=== PATIENT | male | born 1945 | race Caucasian/White ===

== ENCOUNTER 2024-04-11 00:28 | Inpatient (IN) | payer OTHER, SELFPAY ==
[2024-04-10] VITALS (7 sets, daily range): BP systolic 137–161; BP diastolic 70–80; BMI 24.7
[2024-04-10 15:43] LABS: % Basophils 0.8 % (0-2); % Eosinophils 0.4 % (0-6); % Immature Granulocytes 0.5 % (0-0.5); % Lymphocytes 7.8 % (20.5-51.1); % Monocytes 8.4 % (1.7-9.3); % Neutrophils 82.1 % (42.2-75.2); Absolute Basophils 0.1 10^3/uL (0-0.2); Absolute Immature Granulocytes 0.1 10^3/uL (0-0.05); Absolute Lymphocytes 0.7 10^3/uL (1.2-3.4); Absolute Monocytes 0.8 10^3/uL (0.1-0.6); Absolute Neutrophils 7.6 10^3/uL (1.4-6.5); Hemoglobin 13.6 g/dL (13.0-18.0); Mean Corp Hgb Conc. 35.8 g/dL (33.0-37.0); Mean Corpuscular Hgb 34.8 pg (27.0-31.0); Mean Corpuscular Volume 97.2 fL (80.0-94.0); Nucleated Red Blood Cells % 0 % (-); Platelet Count 101 10^3/uL (130-400); Red Blood Cell Count 3.91 10^6/uL (4.70-6.10); Red Cell Dist. Width 12.4 % (11.5-14.5); White Blood Cell Count 9.3 10^3/uL (4.8-10.8)
[2024-04-10 15:56] LABS: Lactic Acid 1.5 mmol/L (0.7-2.0); Lactic Acid 1.6 mmol/L (0.7-2.0)
[2024-04-10 16:09] LABS: ALT (SGPT) 18 U/L (0-50); AST (SGOT) 26 U/L (17-59); Albumin 4.1 g/dl (3.5-5.0); Alkaline Phosphatase 107 U/L (38-126); Blood Urea Nitrogen 15 mg/dl (9-20); Calcium 8.4 mg/dl (8.4-10.2); Carbon Dioxide 25 mmol/L (22-30); Chloride 94 mmol/L (98-107); Glucose 84 mg/dl (70-99); Potassium 4.3 mmol/L (3.5-5.1); Sodium 129 mmol/L (135-145); Total Bilirubin 1.3 mg/dl (0.2-1.3); Total Protein 6.5 g/dl (6.3-8.2); eGFR > 60.00
[2024-04-10] MEDS: TYLENOL 1000 MG PO (22:40)
[2024-04-10] MEDS: NSS 1000 IV (22:42)
--- NOTE | 2024-04-10 22:43 | ED.GENMED ---
History of Present Illness
General
Chief Complaint: Skin Problem
Source: patient, family (Son who was at bedside) and previous hospital records (1 previous ED visit September 2022 for complaints of UTI. ED visit and labs reviewed. Mild hyponatremia noted.)
Exam Limitations: none
Time Seen by Provider: 04/10/24 22:04
Nursing documentation reviewed up to this point in time: agreed with
History of Present Illness
History of Present Illness:
This is a 78-year-old gentleman who resides at home with family. He has history of hypertension, hyperlipidemia, hypothyroidism, BPH. He presents with progressive swelling, redness and pain left lower leg that initially began almost 2 weeks ago
when he dropped a box and struck his left anterior charles causing an abrasion then developed a blister which opened then the area became progressively more red and swollen. He then developed an ecchymotic intact blister left posterior calf. He
reports onset of a fever with Tmax of 103 �F 2 to 3 days ago. Has been taking Tylenol alternating with ibuprofen. Last dose of Tylenol was this afternoon prior to arrival. Last dose of ibuprofen was earlier this morning.
No history of similar episodes of skin infections. He denies back pain nor abdominal pain, no dysuria and urgency and or hematuria. He does note mild brief intermittent cough but denies shortness of breath, no chest pain, no neck pain or headache.
He admits to global progressive pain to his left leg with increased pain with ambulation. He has not had a fall.
No history of diabetes nor immunocompromise.
He has not been on antibiotics.
He has remote history of vein stripping bilateral lower legs but no history of DVT nor thromboembolism.
Past History
Past History
ED Past Medical History: Cancer (Squamous cell carcinoma of forehead, right lateral neck. Benign skin cancer removal left medial lower leg), HTN, Hypercholesterolemia, Hypothyroidism and Other (BPH)
ED Past Surgical History: Appendectomy and Tonsilectomy
Social History
Tobacco: Non-smoker
Alcohol: Occasional
Drug: None
Personal:
Living: with family
Employment: Retired
Family History
Family History: Other (Noncontributory)
Phy Exam
Physical Exam
Physical Exam:
GENERAL: 78-year-old gentleman appears his stated age, awake and alert, very minimally briefly confused from time to time but easily reorients himself and for the most part oriented x 3. Noted to be febrile 101.5 �F. Son is at bedside and
assisting with some of the history.
EYE: pupils equal and reactive. anicteric
NECK: Supple, nontender, no meningismus, no significant adenopathy.
ENT: posterior pharynx is clear, oral mucosa is mildly dry. TM clear b/l, nares patent.
CARDIAC: Regular rate and rhythm. no murmur.
LUNGS: Clear breath sounds bilaterally, no acute respiratory distress, no wheezes/rales/rhonchi
ABDOMEN: Soft, nondistended, without focal tenderness, no r/g, no cvat. normoactive BS.
NEUROLOGICAL: Alert and oriented x3, no focal neuro deficits.
SKIN: Warm and dry, fair turgor. The left lower leg has a dry superficial ulcer anterior mid aspect of the charles there is dark purple ecchymotic bullous left posterior lower leg that is exquisitely tender to palpation. There is markedly global
quite violaceous erythema of the entire left lower leg that extends with moderate erythema to the left anteromedial thigh up to the groin. There is 1 palpable mildly tender enlarged left inguinal node. The foot is without erythema nor edema.
Peripheral pulses are full and equal bilaterally. Gross sensation is intact.
MUSCULOSKELETAL: There is full range of motion bilateral lower extremities with increased pain with flexion of the left knee related to global soft tissue edema of left lower leg. Right lower extremity without edema nor erythema. Peripheral pulses
are full and equal.
PSYCH: Normal and appropriate interaction.
Course
Orders/Labs/Results
Orders:
Orders
04/10/24 15:35
Complete Blood Count/With Diff Urgent
Lactic Acid Q4H
Comment: ON ICE, CANCEL 2ND ORDER IF FIRST LACTIC ACID LEVEL <2
Lactic Acid Q4H
Comment: ON ICE, CANCEL 2ND ORDER IF FIRST LACTIC ACID LEVEL <2
04/10/24 15:36
Comprehensive Metabolic Panel Urgent
04/10/24 22:23
0.9% Sodium Chloride 1000 ml [Nss] 1,000 ml IV BOLUS
Acetaminophen [Tylenol] 1,000 mg PO NOW STA
Piperacillin/Tazo 4.5 Gram [Zosyn] 4.5 gram in 100 ml IV NOW
04/10/24 22:27
US Periph Venous LOWER Ext LT Urgent
Comment:
Reason For Exam: swelling redness LLE
04/10/24 22:29
COVID-19 Antigen Urgent
Source: Nasal Swab
Lactic Acid Urgent
Blood Culture Q30M
KENDY Source: Blood/Venous
Specimen Description:
Influenza A+B Rapid Molecular Urgent
KENDY Source: Nasal Swab
Specimen Description:
04/10/24 22:48
Blood Culture Q30M
KENDY Source: Blood/Venous
Specimen Description:
04/10/24 23:00
Flush (0.9% Sodium Chloride) [Flush (Nss)] See Dose Instructions IV PER PROTOCOL
04/11/24 00:05
Admit/Transfer Patient As Directed
Co-Sign Provider:
Level of Care: Inpatient admission
Assign to:: Medical/Surgical
Physician / Group: Hospitalist
Diagnosis: cellulitis
Reason for Hospitalization: severe cellulitis
Expected length of stay greater than two midnights?: Yes
ELOS- Estimated Length of Stay in days: 2
I certify the patient meets the requirements for IP care: Yes
PRN Pain Medication Management As Directed
May give lesser potent ordered pain med per pt: Yes
preference::
Protocol:: Medication orders for pain may be administered in a
manner that supports deferring to patient preference
when the pt is:
- Requesting an ordered lesser potent pain medication.
Least to most potent pain medications are defined
as: acetaminophen < NSAID < tramadol < opioids
(morphine, oxycodone, hydromorphone).
- Requesting a lesser dose of the same medication IF
ORDERED.
- Requesting a less intrusive route of administration
if both routes are prescribed by the provider (PO <
IV).
04/11/24 00:06
Code Status As Directed
Resuscitation Status: Full Code
04/11/24 00:15
Vancomycin [Vancocin] 2,000 mg 0.9% Sodium Chloride 500 ml [Nss] 500 ml IV NOW
04/11/24 00:41
0.9% Sodium Chloride 1000 ml [Nss] 1,000 ml IV 100 mls/hr
Acetaminophen [Tylenol] 650 mg PO Q4HPRN PRN
Bisacodyl [Dulcolax] 10 mg RECTAL [id number] PRN
Docusate W/Senna [Senokot-S] 1 tablet PO BIDPRN PRN
HYDROmorphone [Dilaudid] 0.5 mg IV Q4HPRN PRN
Ondansetron Injectable [Zofran] 4 mg IV Q6HPRN PRN
Polyethylene Glycol Powder [Miralax] 17 grams PO DAILYPRN PRN
Tramadol HCl [Ultram] 50 mg PO Q6HPRN PRN
04/11/24 00:41
Consult Notification Routine
Specialty to Notify: Infectious Disease
INFECTIOUS DISEASE CONSULT Routine
Consulting Provider: Marlene Boss
Was physician already notified: No
Reason for consult: extensive cellulitis of LLE
Activity As Directed
Activity Level: With Assistance
Vital Signs As Directed
Frequency: Per unit guidelines
DX Deep Vein Thrombosis Video Routine
04/11/24 02:00
VANCOMYCIN Pharmacy to Dose [VANCOCIN Pharmacy to Dose] 1 each Pharmacy To Prepare [Call Pharmacy To Prepare] 0 ml IV PER PROTOCOL
04/11/24 05:14
Basic Metabolic Panel IN AM
Complete Blood Count/No Diff IN AM
04/11/24 Breakfast
Regular
At Your Request: Full Participation
Does patient need a safe tray?: No
Levothyroxine [Synthroid] 100 mcg PO DAILY @ 0600
Piperacillin/Tazo 3.375 Gram [Zosyn] 3.375 gram in 50 ml IV Q6H
04/11/24 08:00
Atorvastatin [Lipitor] 10 mg PO DAILY
Finasteride [Proscar] 5 mg PO DAILY
Lisinopril [Zestril] 10 mg PO DAILY
Tamsulosin [Flomax] 0.4 mg PO BID
mometasone 2 spray NASAL DAILY
04/11/24 18:00
Enoxaparin Sodium [Lovenox] 40 mg SC QPM
Abnormal Lab Results
04/10/24 04/10/24
15:35 15:36
RBC 3.91 L 10^6/uL
(4.70-6.10)
Hct 38.0 L %
(39.0-52.0)
MCV 97.2 H fL
(80.0-94.0)
MCH 34.8 H pg
(27.0-31.0)
Plt Count 101 L 10^3/uL
(130-400)
Abs Immat Gran (auto) 0.1 H 10^3/uL
(0-0.05)
Absolute Neuts (auto) 7.6 H 10^3/uL
(1.4-6.5)
Absolute Lymphs (auto) 0.7 L 10^3/uL
(1.2-3.4)
Absolute Monos (auto) 0.8 H 10^3/uL
(0.1-0.6)
Neutrophils % 82.1 H %
(42.2-75.2)
Lymphocytes % 7.8 L %
(20.5-51.1)
Sodium 129 L mmol/L
(135-145)
Chloride 94 L mmol/L
(98-107)
04/10/24 15:35
04/10/24 15:36
Vital Signs
Initial and Last Documented VS:
Initial Vital Signs
Temp Pulse Resp BP Pulse Ox
98 F 73 16 151/80 97
04/10/24 15:20 04/10/24 15:20 04/10/24 15:20 04/10/24 15:20 04/10/24 15:20
Last Documented Vital Signs
Temp Pulse Resp BP Pulse Ox
99.2 F 76 22 162/79 94
04/11/24 06:11 04/11/24 07:04 04/11/24 06:45 04/11/24 07:04 04/11/24 07:04
MDM/Problems Addressed
Differential Diagnosis Includes:
Patient presents with global cellulitis left lower extremity that appears to have begun with superficial abrasion to left anterior charles. Due to global and violaceous nature of the erythema to the left lower leg as well as accompanying exquisitely
tender ecchymotic bullous left posterior calf, accompanied with high fever, concern for potential early necrotizing infection/deeper infection.
Labs are overall reassuring with normal white blood cell count.
Mild hyponatremia but similar hyponatremia noted September 2022.
He is noted to have very mild thrombocytopenia of 101 which is new compared to previous labs September 2022.
Lactic acid is normal at 1.6.
With current fever, prolonged ED wait time will recheck lactic acid, check blood cultures, will give Tylenol for fever, initiate IV fluids and initiate broad-spectrum IV antibiotic.
Due to global edema left lower extremity concern for potential DVT, concern for subcutaneous infection, will check ultrasound.
Due to potential for severe progressive infection, sepsis patient will require IV antibiotics and hospitalization.
Chronic conditions affecting care: HTN
*Radiology
Radiology exam reviewed: other (Venous Doppler left lower extremity negative for DVT. No evidence of subcutaneous gas.)
*Pulse Oximetry
Patient hypoxic: no
*[employer] Tester Interpretation
Rate: normal
Interpretation: normal
Rhythm: sinus
*Critical Care Note
Total Time (30-74mins, 75-104mins- exclusive of procedures): Not Applicable
ED Attending Note
-
Portions of this chart may have been created with voice recognition software.� Occasional wrong word or��sound alike� substitutions may have occurred due to the inherent limitations of voice recognition software.
Discharge Plan
Departure
Patient Disposition: Admit
Date of Disposition: 04/10/24
Time of Disposition: 22:43
Admit to: Med/Surg
Admit to doctor: Denia
Presentation/result/management discussed w/ accepting MD/DO: Hospitalist
Condition: Fair
Discharge Problem:
Cellulitis of left lower extremity without foot, SIRS (systemic inflammatory response syndrome)
Interventions
Interventions:
*Risk Screen - Suicide Last Done: 04/10/24 15:20
*General Assessment Last Done: 04/10/24 15:20
*Neglect/Abuse Screening Last Done: 04/10/24 15:20
ED-Skin Assessment Last Done: 04/10/24 22:19
[2024-04-10 22:49] LABS: Lactic Acid 1.4 mmol/L (0.7-2.0)
[2024-04-10 22:54] LABS: COVID-19 Antigen Negative (Negative)
[2024-04-10] MEDS: ZOSYN 100 IV (23:47)
--- NOTE | 2024-04-10 23:55 | HPS.HSE ---
Family Physician
-
Family Physician: Freeman Amezcua
Chief Complaint
-
Left leg redness and swelling
History of Present Illness
This is a 78-year-old past medical history of hypothyroidism, BPH, hypertension and recent squamous cell cancer status post excision years ago presents to the emergency department with approximately 3 days of increasing lower extremity swelling and
erythema.
Patient reports that he had been in usual state of health up until 3 days ago. That is when he first noticed swelling that started around his ankles and then started spreading to his knees. The swelling has spread in streak-like fashion
to the groin. He denies prior open wounds or injuries. He had a fever of up to 103 at home. He has been taking Tylenol intermittently. He reports decreased p.o. intake and weakness. He denies any nausea vomiting or diarrhea. He denies any
chest pain pleuritic or otherwise. He denies any prior history of DVT.
The emergency department he was febrile to one 1.5, blood pressure was 157/70 pulse of 79. Was not saturation was 90% on room air. CBC was actually unremarkable. Sodium was 129 to rest of the electrolytes BUN/creatinine were normal. Lactic acid
levels have been normal. Left lower extremity Doppler ultrasound was negative for DVT. There was no significant subcutaneous gas.
Medical History
Past Medical History
Past Medical History: Reports Cancer (Squamous cell cancer status post surgery), HTN, Hypercholesterolemia and Hypothyroidism
Additional Past Medical History:
BPH
Past Surgical History: Reports Appendectomy and Tonsilectomy
Additional Past Surgical History:
Left frontal parietal squamous cell excision
Social History
Tobacco: Non-smoker
Alcohol: Daily
Drug: None
Personal: Single
Living: With Family
Employment: Retired
Family History
Family History: Not pertinent
Allergies / Home Medications
Allergies reflects when Allergies were last updated in [facility].
Home Medications with original date entered in [facility]
Allergy/Medication List:
Allergies
Allergy/AdvReac Type Severity Reaction Status Date / Time
No Known Allergies Allergy Verified 04/10/24 22:16
Home Medications
atorvastatin 10 mg tablet 10 mg PO DAILY 04/10/24
finasteride 5 mg tablet 5 mg PO DAILY 04/10/24
levothyroxine 100 mcg tablet 100 mcg PO DAILY 04/10/24
lisinopril 10 mg tablet 10 mg PO DAILY 04/10/24
mometasone 50 mcg/actuation nasal spray 2 spray intranasal DAILY 04/10/24
tamsulosin 0.4 mg capsule (Flomax) 0.4 mg PO BID 04/10/24
Review of Systems
-
Constitutional: Reports Fever
EENT: Reports No Symptoms
Respiratory: Reports No Symptoms
Cardiac: Reports No Symptoms
Abdomen/GI: Reports No Symptoms
: Reports No Symptoms
Musculoskeletal: Reports Edema
Skin: Reports Rash
Neurological: Reports No Symptoms
Endocrine: Reports No Symptoms
Hematologic/Lymphatic: Reports No Symptoms
Psych: Reports No Symptoms
Physical Exam
Vital Signs
Vital Signs
Temp Pulse Resp BP Pulse Ox
101.5 F H 79 23 137/71 96
04/10/24 22:18 04/10/24 23:30 04/10/24 23:30 04/10/24 23:36 04/10/24 23:36
Physical Exam
General: Well Developed, Well Nourished, Comfortable and Conversant
HEENT: NormoCephalic, Anicteric and Moist mucous membranes
Respiratory: Clear
Cardiac: S1/S2 and Regular Rhythm
Breast: Deferred by me
GI: Soft, Non Tender, Non Distended and Normal Bowel Sounds
Rectal: Deferred by Provider
Genito-urinary: Deferred by me
Musculoskeletal: No Clubbing, No Cyanosis and Edema, Left Lower Extremity (1+)
Skin: Rash (extensive erythema from the ankle to the knee, extension of the erythema above the knee along the medial thigh to the inguinal region. Tender to palpation)
Neuro: AO x 3 and Nonfocal/grossly intact
Hematologic/Lymphatic: No Lymphadenopathy
Psych: Calm
Laboratory Results
-
04/10/24 15:35
04/10/24 15:36
Laboratory Results
Lactic Acid 1.4 mmol/L (0.7-2.0) 04/10/24 22:29
Total Bilirubin 1.3 mg/dl (0.2-1.3) 04/10/24 15:36
AST 26 U/L (17-59) 04/10/24 15:36
ALT 18 U/L (0-50) 04/10/24 15:36
Alkaline Phosphatase 107 U/L (38-126) 04/10/24 15:36
Data Reviewed
-
Ultrasound: Report Reviewed by me
Lab Data: Labs Reviewed by me
Old Records: Reviewed
Impression/Plan
-
IMPRESSION:
78-year-old otherwise healthy with hypertension and hyperlipidemia who presents emergency department with 2 days of left lower extremity swelling and redness consistent with cellulitis with lymphangitic spread. No recent antibiotics, no recent
hospitalization. He is not on any immunosuppressants. Febrile here, hemodynamically stable with normal lactic acid levels.
PLAN:
Cellulitis -severe non-purulent left lower extremity cellulitis, no obvious abscess, no gas to suggest fasciitis. Lactic acid is within the normal range. No risk factors for resistant bacteria but rapid lymphangitic spread with systemic findings.
- admit to med/surg
- blood cultures sent
- will continue iv zosyn for now, add vanco for possible community acquired mrsa
- mrsa swab
- pain control
- ID consult
Hyponatremia - Recent decreased po intake suspect as etiology
- give fluids and abx first and repeat sodium in am
HTN / HLD
- continue lisinopril
- continue statin
BPH
- continue tamsulosin
Hypothyroid
- continue levothyroxine
DVT PPX - lovenox sq
Code status - full code
[2024-04-11] VITALS (29 sets, daily range): BP systolic 130–162; BP diastolic 66–83
[2024-04-11] MEDS: VANCOCIN 540 MG IV (00:20)
[2024-04-11] MEDS: NSS 1000 IV ×3 (01:14→23:27)
[2024-04-11 05:44] LABS: Hematocrit 33.1 % (39.0-52.0); Hemoglobin 11.8 g/dL (13.0-18.0); Mean Corp Hgb Conc. 35.6 g/dL (33.0-37.0); Mean Corpuscular Volume 98.2 fL (80.0-94.0); Mean Platelet Volume 9.3 fL (7.4-10.4); Platelet Count 90 10^3/uL (130-400); Red Blood Cell Count 3.37 10^6/uL (4.70-6.10); Red Cell Dist. Width 12.3 % (11.5-14.5); White Blood Cell Count 9.4 10^3/uL (4.8-10.8)
[2024-04-11 05:59] LABS: Blood Urea Nitrogen 12 mg/dl (9-20); Calcium 7.7 mg/dl (8.4-10.2); Carbon Dioxide 25 mmol/L (22-30); Chloride 95 mmol/L (98-107); Estimated Creatinine Clearance 96 ml/min; Glucose 92 mg/dl (70-99); Potassium 3.9 mmol/L (3.5-5.1); Sodium 129 mmol/L (135-145); eGFR > 60.00
[2024-04-11] MEDS: ZOSYN 50 IV ×2 (06:08→13:00)
[2024-04-11] MEDS: SYNTHROID 100 MCG PO (06:12)
--- NOTE | 2024-04-11 07:48 | PHA.VAN.IN ---
Assessment
- Assessment
Renal Function: Appears similar to baseline
Maximum Temperature: 101.5 - 04/10 - 22:18
Concomitant Antimicrobials: piperacillin/tazobactam
AUC Dosing Plan
- Empiric Dosing
Initial / Loading Dose: 2000 mg 04/11/24 @00:20
Maintenance Regimen: 1250 mg q12h - to start this AM
Estimated AUC (mcg*h/mL): 564
Estimated Peak (mcg*h/mL): 35
Estimated Trough (mcg/ml): 14.5
Estimated Half Life (H): 8.2
- Monitoring
No levels ordered at this time: consider levels after Tues christine dose ( 4th Maint)
Pharmacokinetics Vancomycin I
- -
Patient Age: 78
Patient Sex: Male
Vancomycin Day #: 1
Indication: Skin And Soft Tissue
Requesting Provider: Denia
Height / Weight:
Height 5 ft 11 in
Actual Weight 80.2 kg
- Vital Signs / Lab Results
Temp Pulse Resp BP Pulse Ox
99.2 F 76 22 162/79 94
04/11/24 06:11 04/11/24 07:04 04/11/24 06:45 04/11/24 07:04 04/11/24 07:04
Lab Results - Hematology
04/10/24 04/11/24
15:35 05:14
WBC 9.3 9.4
Lab Results - Chemistry
04/10/24 04/11/24
15:36 05:14
BUN 15 12
Creatinine 0.8 0.7
Estimated Creat Clear 96
Albumin 4.1
04/10/24 04/10/24 04/10/24
15:35 15:35 22:29
Lactic Acid 1.5 1.6 1.4
Microbiology Results
04/10/24 22:29 Influenza Types A & B (BETSY) - Final
Nasal Swab Negative for Influenza A & B, NAAT
Negative results must be combined with clinical observations
and patient history.
Nucleic Acid Amplification test (NAAT)performed on the
[employer] platform.
[2024-04-11] MEDS: ZESTRIL 10 MG PO (09:36)
[2024-04-11] MEDS: PROSCAR 5 MG PO (09:36)
[2024-04-11] MEDS: FLOMAX 0.4 MG PO ×2 (09:36→19:34)
[2024-04-11] MEDS: LIPITOR 10 MG PO (09:36)
[2024-04-11] MEDS: VANCOCIN 275 MG IV (09:36)
--- NOTE | 2024-04-11 13:48 | W.PN.HOSP.TC ---
Today's Communication/Plan
-
Continue with broad-spectrum IV antibiotics.
ID eval pending
Follow culture data.
Assessment / Plan
Assessment / Plan
IMPRESSION:
78-year-old otherwise healthy with hypertension and hyperlipidemia who presents emergency department with 2 days of left lower extremity swelling and redness consistent with cellulitis with lymphangitic spread. No recent antibiotics, no recent
hospitalization. He is not on any immunosuppressants. Febrile here, hemodynamically stable with normal lactic acid levels.
PLAN:
Cellulitis -severe non-purulent left lower extremity cellulitis, no obvious abscess, no gas to suggest fasciitis. Lactic acid is within the normal range. No risk factors for resistant bacteria but rapid lymphangitic spread with systemic findings.
- cw emp abx
- blood cultures sent
- mrsa swab
- pain control
- ID consult
Hyponatremia - Recent decreased po intake ? etiology
- check urine lytes
- Follow for now
HTN / HLD
- continue lisinopril
- continue statin
BPH
- continue tamsulosin
Hypothyroid
- continue levothyroxine
DVT PPX - lovenox sq
Code status - full code
DW son at bedside regarding clinical diagnosis, treatment plan.
Anticipated Discharge: > 48 hours
Subjective/Interval History
-
Date of Service: April 11, 2024
Patient still with some discomfort in the left leg. Has chills. Had a fever last night.
No nausea vomiting. No diarrhea.
Chronic low back pain which he feels more so today. No radiculopathy.
Objective Data
-
Labs:
Laboratory Results
04/11/24
05:14
WBC 9.4
Hgb 11.8 L
Hct 33.1 L
Plt Count 90 L
Sodium 129 L
Potassium 3.9
Chloride 95 L
Carbon Dioxide 25
BUN 12
Creatinine 0.7
Glucose 92
Calcium 7.7 L
Vital Signs:
Vital Signs
Temp Pulse Resp BP Pulse Ox
99.6 F 70 22 145/72 98
04/11/24 09:34 04/11/24 09:34 04/11/24 09:34 04/11/24 09:34 04/11/24 09:34
Review of Systems
-
EENT: Denies Sore Throat
Respiratory: Denies Cough or Trouble Breathing
Cardiac: Denies Chest Pain
Neuro: Denies Dizzy
Physical Exam
-
General: Comfortable
Respiratory: Non Labored Respirations; Negative Accessory Resp Muscle Use
Cardiac: Regular Rhythm and S1/S2; Negative Tachycardic
GI: Soft
Musculoskeletal: Other (Significant cellulitis involving the whole left leg with lymphatic streaking of the left inner distal thigh. Open blister noted in anterior upper leg)
Neuro: AO x 3
Psych: Calm; Negative Confused
Data Reviewed
-
Labs: Labs Reviewed by me
[2024-04-11 15:06] LABS: Osmolality Urine 476 mOsm/kg (300-900)
[2024-04-11 15:22] LABS: Urine Sodium 77 mmol/L (30-90)
--- NOTE | 2024-04-11 15:24 | CON.ID ---
Consultation
-
Date/Time Consultation Requested: 04/11/2024 0041
Date/Time Consultation Performed: 04/11/2024 1454
Requesting Provider: Dr. Loza
Performing Provider: Dr. Tripathi
Reason for Consultation: Left lower extremity cellulitis
Chief Complaint / Past History
History of Present Illness
Troy Rao is a 78-year-old man being evaluated regarding left lower extremity cellulitis. History is obtained from chart review, along with patient interview. The patient has a significant past medical history only for hypertension and
dyslipidemia. He reports that he was in his usual state of health until approximately 2 to 3 weeks ago when he reports that he was moving boxes into the cellar. He recalls that one of the boxes slipped and struck his left anterior tibial area. He
developed a blood blister the next day and the area, but the following day he again was moving boxes and another box slipped and broke that blood blister open. Approximate 3 days later he additionally developed a blistering area on the posterior
calf. He recalls the day after [place] he developed the acute onset of shaking and rigors, with a temperature to 103 degrees. Since that time he has had progressive lower extremity discomfort, and intermittent fevers. He denies any groin pain.
He denies any erythema spreading above his knee. He recalls no prior symptomatology.
Past History
Additional Past Medical History:
HTN
Dyslipidemia
Hypothyroidism
BPH
Additional Past Surgical History:
Appendectomy
Tonsillectomy
Allergy History:
No Known Allergies Allergy (Verified 04/10/24 22:16)
Medications Reviewed: Yes
Current Antibiotics:
Vancomycin
Zosyn
Social History
Tobacco: Non-Smoker
Alcohol: Occasional
Drug: None
Personal:
Living: With Family
Employment: Retired
Family History
Family History: Not Pertinent
Review of Systems
Vital Signs
Temp Pulse Resp BP Pulse Ox
99.6 F 70 22 145/72 98
04/11/24 09:34 04/11/24 09:34 04/11/24 09:34 04/11/24 09:34 04/11/24 09:34
Physical Exam
Physical Exam
Constitutional: No Acute Distress, Comfortable and Non-toxic
Eyes: Pupils Equal, Pupils Round, No Conjunctival Hemorrhage and Sclera Anicteric
Oral: No Thrush and No Ulcers
Cardiovascular: Regular Rate and S1/S2; Negative S3/S4
Pulmonary: Clear; Negative Wheezes, Rales or Rhonchi
Gastrointestinal: Soft, Non Tender and Non Distended
Extremities: Edema (3+ LLE edema), Erythema (left leg; ankle to knee.) and Calf Swelling; Negative Splinter Hemorrhage or Venous Insufficiency
Musculoskeletal: Negative Joint Swelling or Joint Effusion
Skin: Warm and Dry; Negative Rash or Jaundice
Neurological: Awake and Alert
Lab / Diagnostic Study Results
04/11/24 05:14
04/11/24 05:14
Abs Immat Gran (auto) 0.1 10^3/uL (0-0.05) H 04/10/24 15:35
Absolute Neuts (auto) 7.6 10^3/uL (1.4-6.5) H 04/10/24 15:35
Absolute Lymphs (auto) 0.7 10^3/uL (1.2-3.4) L 04/10/24 15:35
Absolute Monos (auto) 0.8 10^3/uL (0.1-0.6) H 04/10/24 15:35
Absolute Basos (auto) 0.1 10^3/uL (0-0.2) 04/10/24 15:35
Immature Gran % 0.5 % (0-0.5) 04/10/24 15:35
Neutrophils % 82.1 % (42.2-75.2) H 04/10/24 15:35
Lymphocytes % 7.8 % (20.5-51.1) L 04/10/24 15:35
Monocytes % 8.4 % (1.7-9.3) 04/10/24 15:35
Eosinophils % 0.4 % (0-6) 04/10/24 15:35
Basophils % 0.8 % (0-2) 04/10/24 15:35
Lactic Acid 1.4 mmol/L (0.7-2.0) 04/10/24 22:29
Microbiology Results
Micro:
04/10/24 22:48 Blood Culture - Pending
Blood/Venous
04/10/24 22:29 Influenza Types A & B (BETSY) - Final
Nasal Swab Negative for Influenza A & B, NAAT
Negative results must be combined with clinical observations
and patient history.
Nucleic Acid Amplification test (NAAT)performed on the
[employer] platform.
04/10/24 22:29 Blood Culture - Pending
Blood/Venous
Imaging:
04/10/2024 Duplex ultrasound left lower extremity: No evidence for left lower extremity DVT.
Assessment / Plan
Acute left lower extremity cellulitis
Normal white count with left shift
Hyponatremia
HTN
Dyslipidemia
Hypothyroidism
BPH
Recommendations:
Transition antibiotic therapy to cefazolin 2 g IV every 8 hours.
Lower extremity elevation.
Quan wrap to the lower extremity (foot to knee)
Monitor white count temperature curve.
Monitor pending cultures.
Further recommendations as additional data is returned.
[2024-04-11] MEDS: LOVENOX 40 MG SC (16:49)
[2024-04-11] MEDS: ANCEF 10 IV ×2 (16:49→23:26)
[2024-04-11] MEDS: ULTRAM 50 MG PO (17:07)
[2024-04-11] MEDS: TYLENOL 650 MG PO (19:34)
[2024-04-12] VITALS: BP 141/72
[2024-04-12 01:00] VITALS: BP 124/70
[2024-04-12] MEDS: SYNTHROID 100 MCG PO (05:44)
--- NOTE | 2024-04-12 06:31 | PTCARENOTE ---
report tubed to 4 west
[2024-04-12 06:34] LABS: Hematocrit 28.5 % (39.0-52.0); Hemoglobin 10.1 g/dL (13.0-18.0); Mean Corp Hgb Conc. 35.4 g/dL (33.0-37.0); Mean Corpuscular Hgb 35.2 pg (27.0-31.0); Mean Corpuscular Volume 99.3 fL (80.0-94.0); Mean Platelet Volume 9.4 fL (7.4-10.4); Platelet Count 91 10^3/uL (130-400); Red Blood Cell Count 2.87 10^6/uL (4.70-6.10); Red Cell Dist. Width 12.4 % (11.5-14.5); White Blood Cell Count 7.5 10^3/uL (4.8-10.8)
[2024-04-12 06:41] LABS: Blood Urea Nitrogen 10 mg/dl (9-20); Calcium 6.8 mg/dl (8.4-10.2); Carbon Dioxide 21 mmol/L (22-30); Chloride 104 mmol/L (98-107); Estimated Creatinine Clearance 96 ml/min; Glucose 85 mg/dl (70-99); Potassium 3.5 mmol/L (3.5-5.1); Sodium 132 mmol/L (135-145); eGFR > 60.00
[2024-04-12 06:58] VITALS: BP 162/79; BMI 25.7
[2024-04-12 07:25] VITALS: BP 148/77
[2024-04-12] MEDS: ZESTRIL 10 MG PO (08:44)
[2024-04-12] MEDS: FLOMAX 0.4 MG PO ×2 (08:45→20:01)
[2024-04-12] MEDS: PROSCAR 5 MG PO (08:45)
[2024-04-12] MEDS: LIPITOR 10 MG PO (08:45)
[2024-04-12] MEDS: ANCEF 10 IV ×3 (08:51→23:04)
--- NOTE | 2024-04-12 09:17 | PN.CDI ---
CDI
- -
CDI:
Physician Documentation Request
Admit Date: 04/11/24 00:28
Dear Doctor Berhane,
Patient admitted with cellulitis.
ER Physician Documentation: 'He reports onset of a fever with Tmax of 103 �F 2 to 3 days ago. Has been taking Tylenol alternating with ibuprofen. Last dose of Tylenol was this afternoon prior to arrival. Last dose of ibuprofen was earlier this
morning.'
Selected Entries
04/10/24
22:18
Temp 101.5 F H
04/10/24
22:45 04/10/24
23:00 04/10/24
23:30
Resp Rate 28 27 23
Please clarify which of the following most accurately describes the status of the patient's infection:
Sepsis, POA
- Systemic manifestations of infection, with 2 or more SIRS criteria which include:
- Fever >100.4 degrees F or hypothermia < 96.8 degrees F
- Leukocytosis - WBC > 12,000 or leukopenia - WBC < 4,000 or > 10% bands
- Tachycardia > 90 beats per minute
- Tachypnea - RR > 20 breaths per minute or PaCO2 , 32mmHg
Source: Merck Manual 2013
- Indicate the known or suspected organism
- Indicate the known or suspected underlying infection, such as cellulitis
Localized Infection Only, Without Systemic Illness
- indicate the site/source, such as UTI, pneumonia etc.
Other
Use of terms such as suspected, likely, concern for, or probable (associated with a specific diagnosis that is being evaluated, monitored, or treated as if it exists) are acceptable and can be coded in the inpatient setting, when documented at the
time of discharge.
Thank you,
Francia Jimenez RN, BSN
CDI Specialist
Available via [place] text
Please use your independent medical judgment in providing your response.
[2024-04-12] MEDS: NSS IV (09:33)
--- NOTE | 2024-04-12 10:49 | CM ---
CM reviewed chart, patient seen bedside, initial assessment completed. Patient resides in a multiple story home with his daughter and granddaughter, five steps to enter. Patient denies DME in the home, denies VN or SNF history. Patient PCP [facility]
Jorge Amezcua, [facility] [place], believes he has prescription coverage. Patient on IV antibiotics. CM will continue to follow for all discharge planning needs.
Plan; home no needs likely
--- NOTE | 2024-04-12 14:30 | W.PN.HOSP.TC ---
Today's Communication/Plan
-
Continue current antibiotics
Fluid restrict and follow sodium
Assessment / Plan
Assessment / Plan
IMPRESSION:
78-year-old otherwise healthy with hypertension and hyperlipidemia who presents emergency department with 2 days of left lower extremity swelling and redness consistent with cellulitis with lymphangitic spread. No recent antibiotics, no recent
hospitalization. He is not on any immunosuppressants. Febrile here, hemodynamically stable with normal lactic acid levels.
PLAN:
Cellulitis -severe non-purulent left lower extremity cellulitis, no obvious abscess, no gas to suggest fasciitis. Lactic acid is within the normal range. No risk factors for resistant bacteria but rapid lymphangitic spread with systemic findings.
- cw emp abx
- blood cultures neg so far
- pain control , drew wrap leg
- appt ID consult
Hyponatremia - Recent decreased po intake ? etiology
- urine lytes suggest excess ADH
- FR for now
HTN / HLD
- continue lisinopril
- continue statin
BPH
- continue tamsulosin
Hypothyroid
- continue levothyroxine
DVT PPX - lovenox sq
Code status - full code
Anticipated Discharge: 24 - 48 hours
Subjective/Interval History
-
Date of Service: April 12, 2024
Feeling improved.
No fever or chills today. Improved fatigue.
No nausea, vomiting or diarrhea.
Left leg now wrapped in compression dressing. Feels little tight in the ankle but not much of pain.
Objective Data
-
Labs:
Laboratory Results
04/12/24
05:49
WBC 7.5
Hgb 10.1 L
Hct 28.5 L
Plt Count 91 L
Sodium 132 L
Potassium 3.5
Chloride 104
Carbon Dioxide 21 L
BUN 10
Creatinine 0.7
Glucose 85
Calcium 6.8 L*
Vital Signs:
Vital Signs
Temp Pulse Resp BP Pulse Ox
98.9 F 70 16 148/77 99
04/12/24 07:25 04/12/24 07:25 04/12/24 07:25 04/12/24 07:25 04/12/24 07:25
I&O
04/11/24 04/12/24 04/13/24
06:59 06:59 06:59
Output Total 200 / 200
Balance -200 / -200
Review of Systems
-
Respiratory: Denies Trouble Breathing
Cardiac: Denies Chest Pain or Palpitations
Abdomen/GI: Denies Abdominal Pain
Neuro: Denies Dizzy
Physical Exam
-
General: No Apparent Distress
HEENT: Moist Mucous Membranes
Respiratory: Clear to Auscultation and Non Labored Respirations; Negative Accessory Resp Muscle Use
Cardiac: Regular Rhythm and S1/S2; Negative Tachycardic
GI: Soft
Musculoskeletal: Other (left leg in dressing)
Neuro: AO x 3
Data Reviewed
-
Labs: Labs Reviewed by me
--- NOTE | 2024-04-12 15:02 | W.PN.ID1 ---
Date of Service
Date of Service: April 12, 2024
Today's Communication
Continue antibiotics.
Assessment / Plan
Significant acute left lower extremity cellulitis
Normal white count with left shift
Hyponatremia
HTN
Dyslipidemia
Hypothyroidism
BPH
Recommendations:
Continue cefazolin 2 g IV every 8 hours.
Lower extremity elevation.
Quan wrap to the lower extremity (foot to knee)
Monitor white count & temperature curve.
Monitor pending cultures.
Further recommendations as additional data is returned.
Chief Complaint
-: Cellulitis (Left lower extremity)
Subjective / Review of Systems
Patient seen and examined. Still has left lower extremity discomfort. Reports Quan wraps were in place overnight, although needed to be removed secondary to perceived tightness.
Review of Systems: No Fever and No Chills
Vital Signs / Physical Exam
Vital Signs
Vital Signs
Temp Pulse Resp BP Pulse Ox
98.9 F 70 16 148/77 99
04/12/24 07:25 04/12/24 07:25 04/12/24 07:25 04/12/24 07:25 04/12/24 07:25
Physical Exam
Constitutional: No Acute Distress, Comfortable and Non-toxic
Eyes: Sclera Anicteric
Pulmonary: Non Labored
Gastrointestinal: Soft and Non Distended
Extremities: Edema (LLE), Erythema (LLE) and Other (persistant sig. warmth LLE)
Neurological: Awake and Alert
Psychological: Calm
Objective Data
Lab Data
Lab Results
04/12/24 05:49
04/12/24 05:49
Estimated Creat Clear 96 ml/min 04/12/24 05:49
Lactic Acid 1.4 mmol/L (0.7-2.0) 04/10/24 22:29
Total Bilirubin 1.3 mg/dl (0.2-1.3) 04/10/24 15:36
AST 26 U/L (17-59) 04/10/24 15:36
ALT 18 U/L (0-50) 04/10/24 15:36
Alkaline Phosphatase 107 U/L (38-126) 04/10/24 15:36
Most recent labs reviewed.
Micro Results:
04/10/24 22:48 Blood Culture - Preliminary
Blood/Venous No Growth in 24 hours- Final report to follow
04/10/24 22:29 Blood Culture - Preliminary
Blood/Venous No Growth in 24 hours- Final report to follow
04/10/24 22:29 Influenza Types A & B (BETSY) - Final
Nasal Swab Negative for Influenza A & B, NAAT
Negative results must be combined with clinical observations
and patient history.
Nucleic Acid Amplification test (NAAT)performed on the
[employer] platform.
Imaging:
04/10/2024 Duplex ultrasound left lower extremity: No evidence for left lower extremity DVT.
[2024-04-12 15:22] VITALS: BP 151/77
[2024-04-12] MEDS: LOVENOX 40 MG SC (16:39)
[2024-04-12] MEDS: TYLENOL 650 MG PO (16:53)
[2024-04-12 23:28] VITALS: BP 143/76
[2024-04-13] MEDS: SYNTHROID 100 MCG PO (05:32)
[2024-04-13 07:30] VITALS: BP 145/77
[2024-04-13] MEDS: FLOMAX 0.4 MG PO ×2 (07:56→19:38)
[2024-04-13] MEDS: LIPITOR 10 MG PO (07:56)
[2024-04-13] MEDS: ZESTRIL 10 MG PO (07:56)
[2024-04-13] MEDS: PROSCAR 5 MG PO (07:56)
[2024-04-13] MEDS: ANCEF 10 IV ×3 (07:56→23:19)
[2024-04-13 08:16] LABS: Hematocrit 29.3 % (39.0-52.0); Hemoglobin 10.6 g/dL (13.0-18.0); Mean Corp Hgb Conc. 36.2 g/dL (33.0-37.0); Mean Corpuscular Hgb 35.7 pg (27.0-31.0); Mean Corpuscular Volume 98.7 fL (80.0-94.0); Mean Platelet Volume 9.6 fL (7.4-10.4); Platelet Count 122 10^3/uL (130-400); Red Blood Cell Count 2.97 10^6/uL (4.70-6.10); Red Cell Dist. Width 12.1 % (11.5-14.5)
[2024-04-13 08:33] LABS: Blood Urea Nitrogen 9 mg/dl (9-20); Carbon Dioxide 27 mmol/L (22-30); Chloride 98 mmol/L (98-107); Estimated Creatinine Clearance 96 ml/min; Glucose 86 mg/dl (70-99); Potassium 3.3 mmol/L (3.5-5.1); Sodium 131 mmol/L (135-145); eGFR > 60.00
--- NOTE | 2024-04-13 13:15 | W.PN.HOSP.TC ---
Today's Communication/Plan
-
Cw abx
Follow skin rash closely
Assessment / Plan
Assessment / Plan
IMPRESSION:
78-year-old otherwise healthy with hypertension and hyperlipidemia who presents emergency department with 2 days of left lower extremity swelling and redness consistent with cellulitis with lymphangitic spread. No recent antibiotics, no recent
hospitalization. He is not on any immunosuppressants. Febrile here, hemodynamically stable with normal lactic acid levels.
PLAN:
Acute Cellulitis -severe non-purulent left lower extremity cellulitis, no obvious abscess, no gas to suggest fasciitis. Lactic acid is within the normal range. No risk factors for resistant bacteria but rapid lymphangitic spread with systemic
findings.
- cw emp abx per ID
- blood cultures neg
- pain control , drew wrap leg
- appt ID consult
Skin rash - localized to upper back . Unclear if related to local contact . If progressing will choose another abx agent.
Hyponatremia - Recent decreased po intake ? etiology
- urine lytes suggest excess ADH
- FR for now
HTN / HLD
- continue lisinopril
- continue statin
BPH
- continue tamsulosin
Hypothyroid
- continue levothyroxine
DVT PPX - lovenox sq
Code status - full code
Anticipated Discharge: 24 - 48 hours
Subjective/Interval History
-
Date of Service: April 13, 2024
No further fevers. No chills.
No nausea vomiting.
Improving swelling and the pain from the left leg.
Rash noted in the upper back. Localized. Not noted elsewhere. Denies any itching.
Objective Data
-
Labs:
Laboratory Results
04/13/24
06:55
WBC 6.0
Hgb 10.6 L
Hct 29.3 L
Plt Count 122 L D
Sodium 131 L
Potassium 3.3 L
Chloride 98
Carbon Dioxide 27
BUN 9
Creatinine 0.7
Glucose 86
Calcium 8.0 L
Vital Signs:
Vital Signs
Temp Pulse Resp BP Pulse Ox
97.6 F 61 20 145/77 99
04/13/24 07:30 04/13/24 07:30 04/13/24 07:30 04/13/24 07:30 04/13/24 08:10
I&O
04/12/24 04/13/24 04/14/24
06:59 06:59 06:59
Intake Total 960 / 960
Output Total 200 / 200
Balance -200 / -200 960 / 960
Review of Systems
-
Respiratory: Denies Trouble Breathing
Cardiac: Denies Chest Pain
Abdomen/GI: Denies Abdominal Pain, Nausea, Vomiting or Diarrhea
Skin: Reports Rash (Maculopapular in the upper back)
Physical Exam
-
General: No Apparent Distress
HEENT: Moist Mucous Membranes
Respiratory: Non Labored Respirations; Negative Accessory Resp Muscle Use
Cardiac: Regular Rhythm and S1/S2; Negative Tachycardic
GI: Soft
Skin: Rash (Maculopapular localized to the upper back)
Neuro: AO x 3
Psych: Calm
Data Reviewed
-
Labs: Labs Reviewed by me
[2024-04-13 15:00] VITALS: BP 155/74
[2024-04-13] MEDS: LOVENOX SC (15:10)
[2024-04-13] MEDS: TYLENOL 650 MG PO (15:19)
--- NOTE | 2024-04-13 19:26 | W.PN.ID1 ---
Date of Service
Date of Service: April 13, 2024
Today's Communication
Continue abx.
Assessment / Plan
Significant acute left lower extremity cellulitis
Normal white count with left shift
Hyponatremia
HTN
Dyslipidemia
Hypothyroidism
BPH
Recommendations:
Continue cefazolin 2 g IV every 8 hours.
Lower extremity elevation.
Quan wrap to the lower extremity (foot to knee)
Monitor white count & temperature curve.
If remains stable / improves, may be able to transition to oral regimen in next 24-48 hours.
Chief Complaint
-: Cellulitis (Left lower extremity)
Subjective / Review of Systems
Late addition. Seen at 12pm. Seen / examined. Feeling better. Less discomfort.
Vital Signs / Physical Exam
Vital Signs
Vital Signs
Temp Pulse Resp BP Pulse Ox
100.2 F 64 18 155/74 97
04/13/24 15:00 04/13/24 15:00 04/13/24 15:00 04/13/24 15:00 04/13/24 15:00
Physical Exam
Constitutional: No Acute Distress, Comfortable and Non-toxic
Eyes: Sclera Anicteric
Pulmonary: Non Labored
Gastrointestinal: Soft and Non Distended
Extremities: Edema (LLE), Erythema (LLE) and Other (less sig. warmth LLE. Less tenderness.)
Neurological: Awake and Alert
Psychological: Calm
Objective Data
Lab Data
Lab Results
04/13/24 06:55
04/13/24 06:55
Estimated Creat Clear 96 ml/min 04/13/24 06:55
Lactic Acid 1.4 mmol/L (0.7-2.0) 04/10/24 22:29
Total Bilirubin 1.3 mg/dl (0.2-1.3) 04/10/24 15:36
AST 26 U/L (17-59) 04/10/24 15:36
ALT 18 U/L (0-50) 04/10/24 15:36
Alkaline Phosphatase 107 U/L (38-126) 04/10/24 15:36
Most recent labs reviewed.
Micro Results:
04/10/24 22:48 Blood Culture - Preliminary
Blood/Venous No Growth in 48 hours- Final report to follow
04/10/24 22:29 Blood Culture - Preliminary
Blood/Venous No Growth in 48 hours- Final report to follow
04/10/24 22:29 Influenza Types A & B (BETSY) - Final
Nasal Swab Negative for Influenza A & B, NAAT
Negative results must be combined with clinical observations
and patient history.
Nucleic Acid Amplification test (NAAT)performed on the
[employer] platform.
Imaging:
04/10/2024 Duplex ultrasound left lower extremity: No evidence for left lower extremity DVT.
[2024-04-13 23:27] VITALS: BP 155/81
[2024-04-14] MEDS: SYNTHROID 100 MCG PO (05:46)
[2024-04-14] MEDS: TYLENOL 650 MG PO (05:48)
[2024-04-14 07:00] VITALS: BP 140/74
[2024-04-14 08:56] LABS: Hematocrit 29.2 % (39.0-52.0); Hemoglobin 10.6 g/dL (13.0-18.0); Mean Corp Hgb Conc. 36.3 g/dL (33.0-37.0); Mean Corpuscular Hgb 35.3 pg (27.0-31.0); Mean Corpuscular Volume 97.3 fL (80.0-94.0); Mean Platelet Volume 9.5 fL (7.4-10.4); Platelet Count 169 10^3/uL (130-400); Red Cell Dist. Width 11.9 % (11.5-14.5); White Blood Cell Count 6.1 10^3/uL (4.8-10.8)
[2024-04-14] MEDS: ZESTRIL 10 MG PO (09:00)
[2024-04-14] MEDS: LIPITOR 10 MG PO (09:00)
[2024-04-14] MEDS: PROSCAR 5 MG PO (09:00)
[2024-04-14] MEDS: ANCEF 10 IV (09:00)
[2024-04-14] MEDS: FLOMAX 0.4 MG PO (09:00)
[2024-04-14 09:06] LABS: Blood Urea Nitrogen 9 mg/dl (9-20); Calcium 7.6 mg/dl (8.4-10.2); Carbon Dioxide 27 mmol/L (22-30); Chloride 97 mmol/L (98-107); Estimated Creatinine Clearance 96 ml/min; Glucose 125 mg/dl (70-99); Potassium 3.2 mmol/L (3.5-5.1); Sodium 132 mmol/L (135-145); eGFR > 60.00
--- NOTE | 2024-04-14 11:51 | W.PN.ID1 ---
Date of Service
Date of Service: April 14, 2024
Today's Communication
Transition to keflex
Assessment / Plan
Significant acute left lower extremity cellulitis
- clinically appears c/w Gp. A strep
Normal white count with left shift
Hyponatremia
HTN
Dyslipidemia
Hypothyroidism
BPH
Recommendations:
Transition to keflex 750 mg PO QID x 7 days
Follow-up in the office in 1 week
Lower extremity elevation.
Quan wrap to the lower extremity (foot to knee)
Chief Complaint
-: Cellulitis (Left lower extremity)
Subjective / Review of Systems
Review of Systems: No Fever and No Chills
Vital Signs / Physical Exam
Vital Signs
Vital Signs
Temp Pulse Resp BP Pulse Ox
98.2 F 55 19 140/74 97
04/14/24 07:00 04/14/24 07:00 04/14/24 07:00 04/14/24 07:00 04/14/24 07:00
Physical Exam
Constitutional: No Acute Distress, Comfortable and Non-toxic
Eyes: Sclera Anicteric
Pulmonary: Non Labored
Gastrointestinal: Soft and Non Distended
Extremities: Edema (LLE), Erythema (LLE) and Other (less sig. warmth LLE. Less tenderness.)
Neurological: Awake and Alert
Psychological: Calm
Objective Data
Lab Data
Lab Results
04/14/24 06:56
04/14/24 06:56
Estimated Creat Clear 96 ml/min 04/14/24 06:56
Lactic Acid 1.4 mmol/L (0.7-2.0) 04/10/24 22:29
Total Bilirubin 1.3 mg/dl (0.2-1.3) 04/10/24 15:36
AST 26 U/L (17-59) 04/10/24 15:36
ALT 18 U/L (0-50) 04/10/24 15:36
Alkaline Phosphatase 107 U/L (38-126) 04/10/24 15:36
Most recent labs reviewed.
Micro Results:
04/10/24 22:48 Blood Culture - Preliminary
Blood/Venous No Growth in 72 hours- Final report to follow
04/10/24 22:29 Blood Culture - Preliminary
Blood/Venous No Growth in 72 hours- Final report to follow
04/10/24 22:29 Influenza Types A & B (BETSY) - Final
Nasal Swab Negative for Influenza A & B, NAAT
Negative results must be combined with clinical observations
and patient history.
Nucleic Acid Amplification test (NAAT)performed on the
[employer] platform.
Imaging:
04/10/2024 Duplex ultrasound left lower extremity: No evidence for left lower extremity DVT.
Care Review
Plan reviewed with: Physician (Hospitalist)
--- NOTE | 2024-04-14 13:03 | CM ---
Pt medically stable for d/c.
CM met pt bedside, agreeable for d/c today. Pt declined VN needs
IMM reviewed, copy in chart.
Per pt, his son will transport him home
Plan: Home; no needs
[2024-04-14 13:37] LABS: Cortisol, Random 10.2 ug/dl; TSH 0.74 uIU/ml (0.47-4.68)
--- NOTE | 2024-04-14 14:20 | WOUNDNOTE ---
[facility] RN note: Patient seen around 13:50pm. Patient admitted with LLE cellulitis. He's dropped card board boxes on his leg about a week ago which caused blood blister on his L pretibial area. Patient lives with his son.
See H&P for complete history.
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
Wound Location and type/assessment: Patient admitted with: L upper pre tibial broken blister, L calf broken blister, pink with some scattered yellow exudate. LLE with diffuse erythema, ecchymotic skin. Trace LLE edema. +Palpable pedal pulses. Back
with scattered red rash. Patient denies itching. Hospitalist noted rash in report.
Appetite: fair.
Pressure redistribution devices in place: [employer] Accumax. Patient ambulates.
Plan: LLE dressing changed. Instructed patient skin/wound care, L knee high Quan wrap application, hand hygiene with wound care. Wound care supplies given. Heels off bed with pillow. Recommended patient follow up at [facility]. He stated he was not
interested in VN.
Confirmed local wound care and L knee high Quan wrap (may remove q hs) orders with Dr. Last and updated RN Katia. Katia stated patient is being discharged to home today.
Discharge instructions updated. Will sign off.
Recommend follow up at wound care center upon discharge.
[2024-04-14 14:58] VITALS: BP 160/84
--- NOTE | 2024-04-14 16:10 | W.PN.HOSP.TC ---
Addendum entered and electronically signed by Nitesh Last MD 04/16/24 17:00:
Met sepsis criteria on admission
Original Note:
Today's Communication/Plan
-
dc
Assessment / Plan
Assessment / Plan
IMPRESSION:
78-year-old otherwise healthy with hypertension and hyperlipidemia who presents emergency department with 2 days of left lower extremity swelling and redness consistent with cellulitis with lymphangitic spread. No recent antibiotics, no recent
hospitalization. He is not on any immunosuppressants. Febrile here, hemodynamically stable with normal lactic acid levels.
PLAN:
Acute Cellulitis -severe non-purulent left lower extremity cellulitis, no obvious abscess, no gas to suggest fasciitis on admitting CT leg. Lactic acid was within the normal range. No risk factors for resistant bacteria but rapid lymphangitic
spread with systemic findings.
Clinical concern for Group A strep.
Concerning area in his calf - advised to follow with wound care instructions and ID to see how it evolves with abx tx.
- cw emp abx per ID - ID ok today to switch to oral Keflex and DC from their end
- blood cultures neg
- cw drew wrap leg
Skin rash - localized to upper back . No new area -seems related to local contact . Advised to call ID if worsening.
Hyponatremia - Recent decreased po intake ? etiology
- urine lytes suggest excess ADH
- Improved
HTN / HLD
- continue lisinopril
- continue statin
BPH
- continue tamsulosin
Hypothyroid
- continue levothyroxine
DVT PPX - lovenox sq
Code status - full code
Medically stable for DC after seen by consulting it architect
Total time of dc 32 min
Anticipated Discharge: Today
Subjective/Interval History
-
Date of Service: April 14, 2024
Feels the left lower swelling is improved. Less pain from the left leg. Able to ambulate to the bathroom without difficulty.
Feels improved from fatigue standpoint.
Denies any fever or chills.
Has rash in back but denies any new rash in other skin areas. No chills .No itching.
Objective Data
-
Labs:
Laboratory Results
04/14/24
06:56
WBC 6.1
Hgb 10.6 L
Hct 29.2 L
Plt Count 169 D
Sodium 132 L
Potassium 3.2 L
Chloride 97 L
Carbon Dioxide 27
BUN 9
Creatinine 0.7
Glucose 125 H
Calcium 7.6 L
Vital Signs:
Vital Signs
Temp Pulse Resp BP Pulse Ox
98.1 F 65 20 160/84 98
04/14/24 14:58 04/14/24 14:58 04/14/24 14:58 04/14/24 14:58 04/14/24 14:58
I&O
04/13/24 04/14/24 04/15/24
06:59 06:59 06:59
Intake Total 960 / 960 840 / 840
Balance 960 / 960 840 / 840
Review of Systems
-
Constitutional: Denies Fever (resolved) or Chills
Respiratory: Denies Cough or Trouble Breathing
Cardiac: Denies Chest Pain
Abdomen/GI: Denies Abdominal Pain, Nausea, Vomiting or Diarrhea
Neuro: Denies Dizzy
Physical Exam
-
General: Comfortable
HEENT: Moist Mucous Membranes
Respiratory: Non Labored Respirations; Negative Accessory Resp Muscle Use
Cardiac: Regular Rhythm and S1/S2; Negative Tachycardic
GI: Soft
Musculoskeletal: Other (Left leg swelling improved. Redness less intense. Area of flaccid blister in calf area , with some serosanguinous fluid.)
Skin: Rash (Maculopapular remains localized to the back and no new areas. Suspect localized contact dermatitis.)
Neuro: AO x 3
Psych: Calm; Negative Confused
Data Reviewed
-
Labs: Labs Reviewed by me
== END 2024-04-14 16:03 | disposition home or self-care (01) | DRG 602 ==
LOC: 4 WEST ACU 00:28
PROVIDERS: Emergency Medicine; ADMITTING PHYSICIAN Internal Medicine; ATTENDING PHYSICIAN Internal Medicine; EMERGENCY PHYSICIAN Emergency Medicine; FAMILY PHYSICIAN Family Medicine; OTHER PHYSICIAN Internal Medicine Infectious Disease
DX: L03.116 Cellulitis of left lower limb (principal); A41.9 Sepsis, unspecified organism; E87.1 Hypo-osmolality and hyponatremia; I10 Essential (primary) hypertension; E78.00 Pure hypercholesterolemia, unspecified; N40.0 Benign prostatic hyperplasia without lower urinary tract symptoms; E03.9 Hypothyroidism, unspecified
CPT/HCPCS: 80048; 80053; 82533; 83605; 83935; 84300; 84443; 85025; 85027; 87040; 87502; 87811; 93971; 96365; 99285